=== PATIENT | female | born 1965 | race Caucasian/White ===

== ENCOUNTER 2017-04-08 19:10 | Inpatient (IN) | payer SELFPAY ==
[2017-04-08 19:56] VITALS: BMI 23.8
--- NOTE | 2017-04-08 20:41 | HP ---
COWS - Scale Resting Pulse: 1= [place] 81-100 Sweatin= Chills/Flushing Restless Observation: 5= Unable to Sit Still Pupil Size: 1= Pupils >than Normal Bone or Joint Aches: 4=Acute Joint/Muscle Pain Runny Nose/ Eye Tearin= Runny Nose/Eyes GI Upset > 30mins: 2= Nausea/Diarrhea Tremor Observation: 2= Slight Tremor Visible Yawning Observation: 0= None Anxiety or Irritability: 2=Irritable/Anxious Goose Flesh Skin: 0=Smooth Skin COWS Score: 20 Admission ROS S - HPI Chief Complaint: seeking detox for heroin dependence Allergies/Adverse Reactions: Allergies Allergy/AdvReac Type Severity Reaction Status Date / Time No Known Allergies Allergy Verified 04/08/17 20:36 History of Present Illness: 51 Y.O. FEMALE WITH LONG HX/O HEROIN DEPENDENCE ADMITTED TO DETOX. CLIENT IS SELF REFERRED. REPORTS LONGEST CLEAN TIME 2 YEARS RELAPSING A YEAR AGO. DETOX 3X REHAB 1X Exam Limitations: No Limitations - Ebola screening Have you traveled outside of the country in the last 21 days: No Have you had contact with anyone from an Ebola affected area: No Have you been sick,other than usual withdrawal symptoms: No Do you have a fever: No - Review of Systems Constitutional: Chills, Loss of Appetite, Malaise, Night Sweats, Changes in sleep EENT: reports: Nose Congestion, Dental Problems (DENTURES BOTH), Other (WATERY EYES) Respiratory: reports: Shortness of Breath (ASTHMA RECENTLY TX'ED FOR BRONCHITIS) Cardiac: reports: No Symptoms Reported GI: reports: Diarrhea, Poor Appetite, Abdominal cramping : reports: No Symptoms Reported Musculoskeletal: reports: Back Pain, Joint Pain Integumentary: reports: No Symptoms Reported Neuro: reports: No Symptoms reported Endocrine: reports: No Symptoms Reported Hematology: reports: No Symptoms Reported Psychiatric: reports: Anxious, Depressed Other Systems: Reviewed and Negative Patient History - Patient Medical History Hx Anemia: No Hx Asthma: Yes Hx Chronic Obstructive Pulmonary Disease (COPD): No Hx Cancer: No Hx Cardiac Disorders: No Hx Congestive Heart Failure: No Hx Hypertension: Yes (NO MEDS) Hx Hypercholesterolemia: No Hx Pacemaker: No HX Cerebrovascular Accident: No Hx Seizures: No Hx Dementia: No Hx Diabetes: No Hx Gastrointestinal Disorders: No Hx Liver Disease: No Hx Genitourinary Disorders: No Hx Sexually Transmitted Disorders: No Hx Renal Disease (ESRD): No Hx Thyroid Disease: No Hx Human Immunodeficiency Virus (HIV): No Hx Hepatitis C: Yes (TX'ED W/ INTERFERON) Hx Depression: Yes ([place], BUSPAR) Hx Suicide Attempt: No Hx Bipolar Disorder: Yes Hx Schizophrenia: No Other Medical History: DENIES - Patient Surgical History Past Surgical History: Yes Hx Abdominal Surgery: Yes (UMBILICAL HERNIA) Hx Appendectomy: Yes Other Surgical History: ECTOPIC Anesthesia Reaction: No - PPD History Previous Implant?: Yes Documented Results: Negative w/o proof Implanted On Prior R Admission?: Yes PPD to be Administered?: Yes - Reproductive History Patient is a Female of Child Bearing Age (11 -55 yrs old): Yes LMP comment: 3 MONTHS AGO Patient : No (NEG [facility] [place]) - Smoking Cessation Smoking history: Current every day smoker Have you smoked in the past 12 months: Yes Aproximately how many cigarettes per day: 20 Cigars Per Day: 0 Hx Chewing Tobacco Use: No Initiated information on smoking cessation: Yes 'Breaking Loose' booklet given: 04/08/17 - Substance & Tx. History Hx Alcohol Use: No Hx Substance Use: Yes Substance Use Type: Heroin Hx Substance Use Treatment: Yes (DOES NOT RECALL) - Substances Abused HEROIN Route: Injection Frequency: Daily Amount used: 10 BAGS Age of first use: 31 Date of Last Use: 04/07/17 Family Disease History - Family Disease History Family Disease History: CA: Father (ANAL), Mother (BRAIN ), Brother ( LUNG) Admission Physical Exam BHS - Vital Signs Vital Signs: Vital Signs - 24 hr 04/08/17 19:54 Temperature 97.0 F L Pulse Rate 85 Respiratory 18 Rate Blood Pressure 150/80 - Physical General Appearance: Yes: Appropriately Dressed, Mild Distress, Tremorous, Anxious HEENTM: Yes: EOMI, Normocephalic, Normal Voice, GERARDO, Pharynx Normal, Nasal Congestion Respiratory: Yes: Chest Non-Tender, No Respiratory Distress, No Accessory Muscle Use, Other (COARSE BREATH SOUNDS) Neck: Yes: No masses,lesions,Nodules, Supple, Trachea in good position Breast: Yes: Breast Exam Deferred Cardiology: Yes: Regular Rhythm, Regular Rate, S1, S2 Abdominal: Yes: Normal Bowel Sounds, Non Tender, Soft Genitourinary: Yes: Within Normal Limits Back: Yes: Normal Inspection Musculoskeletal: Yes: full range of Motion, Gait Steady Extremities: Yes: Normal Capillary Refill, Normal Range of Motion, Non-Tender, Tremors 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: Yes: 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, Fully Oriented, Alert, Motor Strength 5/5 Integumentary: Yes: Normal Color, Dry, Warm, Track Hanna Lymphatic: Yes: Within Normal Limits - Diagnostic (1) HTN (hypertension) Current Visit: Yes Status: Chronic Qualifiers: Hypertension type: essential hypertension Qualified Code(s): I10 - Essential (primary) hypertension; I10 - Essential (primary) hypertension; I10 - Essential (primary) hypertension (2) Asthma Current Visit: Yes Status: Chronic Qualifiers: Asthma severity: mild Asthma persistence: intermittent Asthma complication type: with acute exacerbation Qualified Code(s): J45.21 - Mild intermittent asthma with (acute) exacerbation; J45.21 - Mild intermittent asthma with (acute) exacerbation; J45.21 - Mild intermittent asthma with (acute ) exacerbation (3) Nicotine dependence Current Visit: Yes Status: Chronic Qualifiers: Nicotine product type: cigarettes Substance use status: uncomplicated Qualified Code(s): F17.210 - Nicotine dependence, cigarettes, uncomplicated; F17.210 - Nicotine dependence, cigarettes, uncomplicated (4) Opioid dependence with withdrawal Current Visit: Yes Status: Chronic Cleared for Admission [facility] - Detox or Rehab [facility] Level of Care: Medically Managed Detox Regimen/Protocol: Methadone [facility] Breath Alcohol Content Breath Alcohol Content: 0 Urine Pregancy Test - Result Urine Test Results: Negative- NO Line Present Urine Drug Screen - Results Drug Screen Negative: No Urine Drug Screen Results: OPI-Opiates
[2017-04-08] MEDS ORDERED: METHADONE HCL 10 MG TABLET (FOR DETOX USE ONLY) PO ONE ×3 (20:50→23:15)
[2017-04-08] MEDS ORDERED: NICOTINE POLACRILEX 2 MG GUM BC PRN (20:50)
[2017-04-08] MEDS ORDERED: P-EPHED 60MG/TRIPROLIDI 2.5MG TABLET PO PRN (20:50)
[2017-04-08] MEDS ORDERED: MAG HYDROX/AL HYDROX/SIMETH 30 ML UNIT-DOSE CUP PO PRN (20:50)
[2017-04-08] MEDS ORDERED: MAGNESIUM CITRATE 300 ML BOTTLE PO PRN (20:50)
[2017-04-08] MEDS ORDERED: MENTHOL/PHENOL 1 EACH UD MM PRN (20:50)
[2017-04-08] MEDS ORDERED: IBUPROFEN 400 MG TABLET (FP) PO PRN (20:50)
[2017-04-08] MEDS ORDERED: ACETAMINOPHEN 325 MG TABLET (FP) PO PRN (20:50)
[2017-04-08] MEDS ORDERED: LOPERAMIDE HCL 2 MG CAPSULE PO PRN (20:50)
[2017-04-08] MEDS ORDERED: MAGNESIUM HYDROX 2400MG/30ML ORAL SUSPENSION 30 ML CUP PO PRN (20:50)
[2017-04-08] MEDS: NICOTINE 21 MG/24 HOURS TOPICAL PATCH TD SCH (23:04)
[2017-04-08] MEDS: diazePAM 5 MG TABLET PO PRN (23:09)
[2017-04-08] MEDS: THIAMINE HCL 100 MG TABLET (FP) PO SCH (23:15)
[2017-04-09 01:58] LABS: URINE APPEARANCE CLOUDY; URINE BILIRUBIN NEGATIVE (NEGATIVE); URINE BLOOD 1+ (NEGATIVE); URINE COLOR AMBER; URINE GLUCOSE (UA) NEGATIVE (NEGATIVE); URINE KETONE TRACE (NEGATIVE); URINE NITRITE NEGATIVE (NEGATIVE); URINE UROBILINOGEN NEGATIVE mg/dL (0.2-1.0)
[2017-04-09] MEDS: diphenhydrAMINE HCL 50 MG CAPSULE PO PRN ×2 (01:58→22:12)
[2017-04-09 02:02] LABS: URINE PROTEIN 1+ (NEGATIVE)
[2017-04-09 02:25] LABS: CALCIUM OXALATE CRYSTALS RARE /hpf (NONE SEEN); URINE MUCUS MANY; URINE RBC 117 /hpf (0-3)
[2017-04-09] MEDS: guaiFENesin/D-METHORPHAN HB 10 ML UNIT-DOSE CUPS PO PRN ×2 (02:59→22:12)
--- NOTE | 2017-04-09 09:23 | EKG ---
Test Reason : Blood Pressure : / mmHG Vent. Rate : 062 BPM Atrial Rate : 062 BPM P-R Int : 130 ms QRS Dur : 090 ms QT Int : 430 ms P-R-T Axes : 058 056 034 degrees QTc Int : 436 ms NORMAL SINUS RHYTHM VOLTAGE CRITERIA FOR LEFT VENTRICULAR HYPERTROPHY ABNORMAL ECG WHEN COMPARED WITH ECG OF 08-APR-2017 22:20, NON-SPECIFIC CHANGE IN ST SEGMENT IN ANTERIOR LEADS Confirmed by MARLA ONTIVEROS MD ([id number]) on 04/09/2017 9:22:47 AM Referred By: Confirmed By:MARLA ONTIVEROS MD
--- NOTE | 2017-04-09 09:24 | EKG ---
Test Reason : Blood Pressure : / mmHG Vent. Rate : 065 BPM Atrial Rate : 065 BPM P-R Int : 134 ms QRS Dur : 084 ms QT Int : 410 ms P-R-T Axes : 054 023 016 degrees QTc Int : 426 ms NORMAL SINUS RHYTHM T WAVE ABNORMALITY, CONSIDER ANTERIOR ISCHEMIA ABNORMAL ECG NO PREVIOUS ECGS AVAILABLE Confirmed by MARLA ONTIVEROS MD ([id number]) on 04/09/2017 9:24:16 AM Referred By: Confirmed By:MARLA ONTIVEROS MD
[2017-04-09 09:51] LABS: MCH 30.2 pg (25.7-33.7); MCHC 33.5 g/dl (32.0-36.0); MEAN CELL VOLUME 90.2 fl (80-96); MEAN PLT VOLUME 9.8 fl (7.5-11.1); PLATELET COUNT 207 K/MM3 (134-434); RDW 14.6 % (11.6-15.6); WHITE BLOOD COUNT 8.3 K/mm3 (4.0-10.0)
[2017-04-09] MEDS ORDERED: METHADONE HCL 10 MG TABLET (FOR DETOX USE ONLY) PO ONE (10:00)
[2017-04-09 10:06] LABS: ALBUMIN 2.7 g/dl (3.4-5.0); ALK PHOS 81 U/L (45-117); ANION GAP 5 (8-16); BILIRUBIN,TOTAL 0.6 mg/dL (0.2-1.0); CALCIUM 8.3 mg/dL (8.5-10.1); CO2 33 mmol/L (21-32); CREATININE 0.8 mg/dL (0.55-1.02); GLUCOSE,RANDOM 82 mg/dL (74-106); SGOT/AST 20 U/L (15-37); SGPT/ALT 21 U/L (12-78); TOT PROT 7.1 g/dl (6.4-8.2)
[2017-04-09 10:40] LABS: URINE LEUK ESTERASE Negative (NEGATIVE)
[2017-04-09] MEDS: NICOTINE 21 MG/24 HOURS TOPICAL PATCH TD SCH (10:56)
[2017-04-09] MEDS: PRENATAL VITAMINS W/ FOLIC ACID TABLET (FP) PO SCH (10:56)
--- NOTE | 2017-04-09 11:26 | PN ---
BHS COWS - Scale Resting Pulse: 0= OR 80 or Below Sweatin=Flushed/Facial Moisture Restless Observation: 3= Extraneous Movement Pupil Size: 0= Normal to Room Light Bone or Joint Aches: 2= Severe Diffuse Aches Runny Nose/ Eye Tearin= Runny Nose/Eyes GI Upset > 30mins: 3= Vomiting/Diarrhea (diarrhea) Tremor Observation of Outstretched Hands: 2= Slight Tremor Visible Yawning Observation: 0= None Anxiety or Irritability: 4=Extreme Anxiety Goose Flesh Skin: 3=Piloerection COWS Score: 21 BHS Progress Note (SOAP) Subjective: Interrupted sleep, chills, diarrhea, body aches, tremors, anxiety Objective: 04/09/17 11:38 Vital Signs Temperature 98.1 F 04/09/17 09:43 Pulse Rate 73 04/09/17 09:43 Respiratory Rate 16 04/09/17 09:43 Blood Pressure 130/85 04/09/17 09:43 O2 Sat by Pulse Oximetry (%) Laboratory Last Values WBC 8.3 K/mm3 (4.0-10.0) 04/09/17 07:00 RBC 4.21 M/mm3 (3.60-5.2) 04/09/17 07:00 Hgb 12.7 GM/dL (10.7-15.3) 04/09/17 07:00 Hct 38.0 % (32.4-45.2) 04/09/17 07:00 MCV 90.2 fl (80-96) 04/09/17 07:00 MCH 30.2 pg (25.7-33.7) 04/09/17 07:00 MCHC 33.5 g/dl (32.0-36.0) 04/09/17 07:00 RDW 14.6 % (11.6-15.6) 04/09/17 07:00 Plt Count 207 K/MM3 (134-434) 04/09/17 07:00 MPV 9.8 fl (7.5-11.1) 04/09/17 07:00 Sodium 141 mmol/L (136-145) 04/09/17 07:00 Potassium 3.4 mmol/L (3.5-5.1) L 04/09/17 07:00 Chloride 103 mmol/L (98-107) 04/09/17 07:00 Carbon Dioxide 33 mmol/L (21-32) H 04/09/17 07:00 Anion Gap 5 (8-16) L 04/09/17 07:00 BUN 15 mg/dL (7-18) 04/09/17 07:00 Creatinine 0.8 mg/dL (0.55-1.02) 04/09/17 07:00 Creat Clearance w eGFR > 60 (>60) 04/09/17 07:00 Random Glucose 82 mg/dL (74-106) 04/09/17 07:00 Calcium 8.3 mg/dL (8.5-10.1) L 04/09/17 07:00 Total Bilirubin 0.6 mg/dL (0.2-1.0) 04/09/17 07:00 AST 20 U/L (15-37) 04/09/17 07:00 ALT 21 U/L (12-78) 04/09/17 07:00 Alkaline Phosphatase 81 U/L (45-117) 04/09/17 07:00 Total Protein 7.1 g/dl (6.4-8.2) 04/09/17 07:00 Albumin 2.7 g/dl (3.4-5.0) L 04/09/17 07:00 Urine Color Elisabeth 04/08/17 21:44 Urine Appearance Cloudy 04/08/17 21:44 Urine pH 5.0 (5.0-8.0) 04/08/17 21:44 Ur Specific [place] >= 1.030 (1.005-1.025) H 04/08/17 21:44 Urine Protein 1+ (NEGATIVE) H 04/08/17 21:44 Urine Glucose (UA) Negative (NEGATIVE) 04/08/17 21:44 Urine Ketones Trace (NEGATIVE) H 04/08/17 21:44 Urine Blood 1+ (NEGATIVE) H 04/08/17 21:44 Urine Nitrite Negative (NEGATIVE) 04/08/17 21:44 Urine Bilirubin Negative (NEGATIVE) 04/08/17 21:44 Urine Urobilinogen Negative mg/dL (0.2-1.0) 04/08/17 21:44 Ur Leukocyte Esterase Negative (NEGATIVE) 04/08/17 21:44 Urine RBC 117 /hpf (0-3) 04/08/17 21:44 Ur Epithelial Cells Many /hpf (FEW) 04/08/17 21:44 Calcium Oxalate Crystal Rare /hpf (NONE SEEN) 04/08/17 21:44 Urine Mucus Many 04/08/17 21:44 Labs noted. K+ 3.4mmol, K-dur 20mEq oral BID Assessment: 04/09/17 11:40 Continue detox Plan: Continue detox
[2017-04-09] MEDS ORDERED: POTASSIUM CHLORIDE TABS 20 MEQ TABLET.ER (FP) PO ONE (11:45)
--- NOTE | 2017-04-09 16:19 | CONSULT ---
[facility] Psychiatric Consult - Data Date of interview: 04/09/17 Admission source: [facility] Identifying data: First admission to [facility] for this 51 y/o female seeking detox treatment on for heroin dependence.Patient is single,a mother of four,homeless,unemployed and supported on SSI benefits. Substance Abuse History: Confirmed by patient in this session.Smoking Cessation. Smoking history: Current every day smoker. Have you smoked in the past 12 months: Yes. Aproximately how many cigarettes per day: 20. Cigars Per Day: 0. Hx Chewing Tobacco Use: No. Initiated information on smoking cessation : Yes. 'Breaking Loose' booklet given: 04/08/17. - Substance & Tx. History. Hx Alcohol Use: No. Hx Substance Use: Yes. Substance Use Type: Heroin. Hx Substance Use Treatment: Yes (DOES NOT RECALL). - Substances Abused. HEROIN. Route: Injection. Frequency: Daily. Amount used: 10 BAGS. Age of first use: 31. Date of Last Use: 04/07/17 Medical History: Hepatitis C,hypertension,bronchial asthma,past history of inguinal herniorraphy and ectopic . Psychiatric History: Patient is an irritable,indifferent and vague historian." I have been in a psychiatric lucio at [facility] sometime in the . " Reportedly diagnosed with Bipolar Disorder.No recall of psychotropics prescribed.No OPD care for years.Ms Sheikh indicates no intent to be on medications other than current detox protocol.Patient admits to a remote history of suicide attempts via overdose with " pills." Physical/Sexual Abuse/Trauma History: No history reported. Additional Comment: Urine Drug Screen Results: OPI-Opiates.Noted. Mental Status Exam - Mental Status Exam Alert and Oriented to: Time, Place, Person Cognitive Function: Good Patient Appearance: Well Groomed (thin habitus) Mood: Withdrawn Affect: Mood Congruent Patient Behavior: Fatigued, Cooperative (marginally) Speech Pattern: Clear Voice Loudness: Normal Thought Process: Goal Oriented Thought Disorder: Not Present Hallucinations: Denies Suicidal Ideation: Denies Homicidal Ideation: Denies Insight/Judgement: Poor Sleep: Fair Appetite: Good, Fair Muscle strength/Tone: Normal Gait/Station: Normal Psychiatric Findings - Problem List ([place] 1, 2,3) (1) Nicotine dependence Current Visit: Yes Status: Acute Qualifiers: Nicotine product type: cigarettes Substance use status: uncomplicated Qualified Code(s): F17.210 - Nicotine dependence, cigarettes, uncomplicated; F17.210 - Nicotine dependence, cigarettes, uncomplicated (2) Opioid dependence with withdrawal Current Visit: Yes Status: Acute (3) Substance induced mood disorder Current Visit: Yes Status: Acute (4) Asthma Current Visit: Yes Status: Chronic Qualifiers: Asthma severity: mild Asthma persistence: intermittent Asthma complication type: with acute exacerbation Qualified Code(s): J45.21 - Mild intermittent asthma with (acute) exacerbation; J45.21 - Mild intermittent asthma with (acute) exacerbation; J45.21 - Mild intermittent asthma with (acute ) exacerbation (5) HTN (hypertension) Current Visit: Yes Status: Chronic Qualifiers: Hypertension type: essential hypertension Qualified Code(s): I10 - Essential (primary) hypertension; I10 - Essential (primary) hypertension; I10 - Essential (primary) hypertension - Initial Treatment Plan Initial Treatment Plan: Psychoeducation.Detoxification.Observation.
[2017-04-09] MEDS: POTASSIUM CHLORIDE TABS 20 MEQ TABLET.ER (FP) PO SCH (17:39)
[2017-04-09] MEDS: THIAMINE HCL 100 MG TABLET (FP) PO SCH (22:11)
[2017-04-09] MEDS: diazePAM 5 MG TABLET PO PRN (22:11)
[2017-04-10] MEDS: diazePAM 5 MG TABLET PO PRN ×2 (07:21→22:17)
[2017-04-10] MEDS ORDERED: METHADONE HCL 5 MG TABLET (FOR DETOX USE ONLY) PO ONE (10:00)
[2017-04-10] MEDS: POTASSIUM CHLORIDE TABS 20 MEQ TABLET.ER (FP) PO SCH ×2 (10:18→20:10)
[2017-04-10] MEDS: NICOTINE 21 MG/24 HOURS TOPICAL PATCH TD SCH (10:18)
[2017-04-10] MEDS: cloNIDine HCL 0.1 MG TABLET PO SCH ×2 (10:18→22:17)
[2017-04-10] MEDS: PRENATAL VITAMINS W/ FOLIC ACID TABLET (FP) PO SCH (10:18)
[2017-04-10] MEDS: CYCLOBENZAPRINE HCL 10 MG TABLET (FP) PO PRN ×2 (10:18→22:17)
--- NOTE | 2017-04-10 15:29 | PN ---
BHS COWS - Scale Resting Pulse: 1= [place] 81-100 Sweatin= Chills/Flushing Restless Observation: 3= Extraneous Movement Pupil Size: 1= Pupils >than Normal Bone or Joint Aches: 2= Severe Diffuse Aches Runny Nose/ Eye Tearin= Runny Nose/Eyes GI Upset > 30mins: 3= Vomiting/Diarrhea Tremor Observation of Outstretched Hands: 2= Slight Tremor Visible Yawning Observation: 1= 1-2x During Session Anxiety or Irritability: 2=Irritable/Anxious Goose Flesh Skin: 0=Smooth Skin COWS Score: 18 BHS Progress Note (SOAP) Subjective: alert,irritable,anxious,interrupted sleep,pain in the body and back Objective: 04/10/17 15:27 Vital Signs Temperature 98.2 F 04/10/17 13:47 Pulse Rate 85 04/10/17 13:47 Respiratory Rate 16 04/10/17 13:47 Blood Pressure 129/94 04/10/17 13:47 O2 Sat by Pulse Oximetry (%) ekg nsr,lvh 04/10/17 15:27 Laboratory Last Values WBC 8.3 K/mm3 (4.0-10.0) 04/09/17 07:00 RBC 4.21 M/mm3 (3.60-5.2) 04/09/17 07:00 Hgb 12.7 GM/dL (10.7-15.3) 04/09/17 07:00 Hct 38.0 % (32.4-45.2) 04/09/17 07:00 MCV 90.2 fl (80-96) 04/09/17 07:00 MCH 30.2 pg (25.7-33.7) 04/09/17 07:00 MCHC 33.5 g/dl (32.0-36.0) 04/09/17 07:00 RDW 14.6 % (11.6-15.6) 04/09/17 07:00 Plt Count 207 K/MM3 (134-434) 04/09/17 07:00 MPV 9.8 fl (7.5-11.1) 04/09/17 07:00 Sodium 141 mmol/L (136-145) 04/09/17 07:00 Potassium 3.4 mmol/L (3.5-5.1) L 04/09/17 07:00 Chloride 103 mmol/L (98-107) 04/09/17 07:00 Carbon Dioxide 33 mmol/L (21-32) H 04/09/17 07:00 Anion Gap 5 (8-16) L 04/09/17 07:00 BUN 15 mg/dL (7-18) 04/09/17 07:00 Creatinine 0.8 mg/dL (0.55-1.02) 04/09/17 07:00 Creat Clearance w eGFR > 60 (>60) 04/09/17 07:00 Random Glucose 82 mg/dL (74-106) 04/09/17 07:00 Calcium 8.3 mg/dL (8.5-10.1) L 04/09/17 07:00 Total Bilirubin 0.6 mg/dL (0.2-1.0) 04/09/17 07:00 AST 20 U/L (15-37) 04/09/17 07:00 ALT 21 U/L (12-78) 04/09/17 07:00 Alkaline Phosphatase 81 U/L (45-117) 04/09/17 07:00 Total Protein 7.1 g/dl (6.4-8.2) 04/09/17 07:00 Albumin 2.7 g/dl (3.4-5.0) L 04/09/17 07:00 Urine Color Elisabeth 04/08/17 21:44 Urine Appearance Cloudy 04/08/17 21:44 Urine pH 5.0 (5.0-8.0) 04/08/17 21:44 Ur Specific [place] >= 1.030 (1.005-1.025) H 04/08/17 21:44 Urine Protein 1+ (NEGATIVE) H 04/08/17 21:44 Urine Glucose (UA) Negative (NEGATIVE) 04/08/17 21:44 Urine Ketones Trace (NEGATIVE) H 04/08/17 21:44 Urine Blood 1+ (NEGATIVE) H 04/08/17 21:44 Urine Nitrite Negative (NEGATIVE) 04/08/17 21:44 Urine Bilirubin Negative (NEGATIVE) 04/08/17 21:44 Urine Urobilinogen Negative mg/dL (0.2-1.0) 04/08/17 21:44 Ur Leukocyte Esterase Negative (NEGATIVE) 04/08/17 21:44 Urine RBC 117 /hpf (0-3) 04/08/17 21:44 Ur Epithelial Cells Many /hpf (FEW) 04/08/17 21:44 Calcium Oxalate Crystal Rare /hpf (NONE SEEN) 04/08/17 21:44 Urine Mucus Many 04/08/17 21:44 RPR Titer Nonreactive (NONREACTIVE) 04/09/17 07:00 Hepatitis C Antibody >11.0 s/co ratio (0.0-0.9) H 04/08/17 07:00 Assessment: withdrawal symptom Plan: continue detox
[2017-04-10] MEDS: THIAMINE HCL 100 MG TABLET (FP) PO SCH (22:17)
[2017-04-11] MEDS ORDERED: METHADONE HCL 5 MG TABLET (FOR DETOX USE ONLY) PO ONE (10:00)
[2017-04-11] MEDS: NICOTINE 21 MG/24 HOURS TOPICAL PATCH TD SCH (10:46)
[2017-04-11] MEDS: PRENATAL VITAMINS W/ FOLIC ACID TABLET (FP) PO SCH (10:47)
[2017-04-11] MEDS: POTASSIUM CHLORIDE TABS 20 MEQ TABLET.ER (FP) PO SCH (10:47)
[2017-04-11] MEDS: cloNIDine HCL 0.1 MG TABLET PO SCH (10:47)
--- NOTE | 2017-04-11 11:25 | PN ---
S Progress Note (SOAP) Subjective: ALERT,IRRITABLE,ANXIOUS,INTERRUPTED SLEEP Objective: 04/11/17 11:22 Vital Signs Temperature 98.2 F 04/11/17 11:07 Pulse Rate 88 04/11/17 11:07 Respiratory Rate 18 04/11/17 11:07 Blood Pressure 110/74 04/11/17 11:07 O2 Sat by Pulse Oximetry (%) 04/11/17 11:45 Assessment: 04/11/17 11:22 WITHDRAWAL SYMPTOM 04/11/17 11:45 Plan: LESS WITHDRAWAL SYMPTOM,MEDICATION ADJUST,DISCHARGED IN AM AT 0700AM
--- NOTE | 2017-04-11 11:53 | PN ---
CELINE Progress Note Note: ADDENDUM PATIENT IS KNOWN HEPATITIS C TREATED WITH INTERFERON 5 YEARS AGO,WILL FOLLOW UP WITH HER PMD AT [facility] ALSO HYPOKALEMIA K IS 3.4 WILL CONTINUE K DUR 20 MEQ PO DAILY FOR 5 DAYS
[2017-04-11 16:09] VITALS: BP 114/82; PULSE 85; TEMP 97.1
--- NOTE | 2017-04-11 17:11 | PN ---
S Progress Note Note: patient did not want to complete treatment due to personal problem,seen by counselor,did not want to wait, signed release ama
--- NOTE | 2017-04-11 17:18 | DS ---
[facility] Detox Discharge Summary Admission Date: 04/08/17 Discharge Date: 04/11/17 - History Present History: Opioid Dependence Additional Comments: patient did not want to complete treatment due to personal problem,seen by counselor,did nit want to wait,signed release ama Pertinent Past History: hypertension asthma - Physical Exam Results Vital Signs: Vital Signs Temperature 97.1 F L 04/11/17 15:00 Pulse Rate 85 04/11/17 15:00 Respiratory Rate 18 04/11/17 15:00 Blood Pressure 114/82 04/11/17 15:00 O2 Sat by Pulse Oximetry (%) Pertinent Admission Physical Exam Findings: withdrawal symptom - Treatment Patient has Accepted a Rehab Referral to: declined - Medication Discharge Medications: Ambulatory Orders Buspirone HCl [Buspar -] 10 mg PO DAILY 04/08/17 Lurasidone HCl [Latuda -] 40 mg PO DAILY 04/08/17 Potassium Chloride [K-Dur -] 20 meq PO BID@1000,1800 #5 tab 04/11/17 - AMA Did Patient Leave Against Medical Advice: Yes
[2017-04-12] MEDS ORDERED: METHADONE HCL 5 MG TABLET (FOR DETOX USE ONLY) PO ONE (06:00)
[2017-04-12] MEDS ORDERED: METHADONE HCL 10 MG TABLET (FOR DETOX USE ONLY) PO ONE (10:00)
[2017-04-13] MEDS ORDERED: METHADONE HCL 5 MG TABLET (FOR DETOX USE ONLY) PO ONE (06:00)
[2017-04-13 10:58] LABS: URINE WBC 17 /hpf (3-5)
[2017-04-14 00:06] LABS: HCV LOG 10 3.721 (.)
== END 2017-04-11 16:40 | disposition left against medical advice (07) | DRG 770 ==
LOC: YASAS 19:10 → Y6N 21:04
PROVIDERS: ADMIT Internal Medicine; ATTEND Internal Medicine
PROC: HZ2ZZZZ Detoxification Services for Substance Abuse Treatment (ICD-10-PCS; principal; 2017-04-08)
DX: F11.23 Opioid dependence with withdrawal (principal); F17.213 Nicotine dependence, cigarettes, with withdrawal; F19.24 Other psychoactive substance dependence with psychoactive substance-induced mood disorder; J45.21 Mild intermittent asthma with (acute) exacerbation; I10 Essential (primary) hypertension; E78.6 Lipoprotein deficiency; Z59.0 Homelessness
CPT/HCPCS: 36415; 80053; 81003; 81015; 85027; 86593; 86803; 87522; 93005; 93010